=== PATIENT | male | born 2000 | race Caucasian/White ===

== ENCOUNTER 2018-06-15 14:19 | Emergency (ER) | payer OTHER ==
[~2018-06-15] VITALS: Ht 190.5 cm; Wt 68.0 kg
[2018-06-15 14:47] LABS: HEMATOCRIT 45.6 % (42.0-52.0); HEMOGLOBIN 16.1 gm/dL (14.0-18.0); MCH 29.7 pg (26.0-34.0); MCHC 35.4 g/dL (28.0-37.0); MCV 84.1 fL (80.0-100.0); PLATELET COUNT 93 thou/uL (150-400); RBC 5.42 mil/uL (4.50-6.00); RDW 12.3 % (10.5-14.5); WBC 6.4 thou/uL (4.0-11.0)
[2018-06-15 15:03] LABS: CALCIUM 9.2 mg/dL (8.5-10.1); POTASSIUM 3.6 mmol/L (3.5-5.1)
[2018-06-15 15:08] LABS: ALBUMIN 3.5 g/dL (3.4-5.0); TOTAL BILIRUBIN 4.6 mg/dL (<0.1-1.0); TOTAL PROTEIN 7.9 g/dL (6.4-8.2)
[2018-06-15 15:33] LABS: ABSOLUTE NEUTROPHILS 1.9 thou/uL (1.4-8.2)
[2018-06-15 17:31] LABS: URINE BLOOD NEGATIVE (Negative); URINE CLARITY CLEAR; URINE COLOR YELLOW; URINE GLUCOSE-RANDOM* NEGATIVE (Negative); URINE KETONES 1+ (Negative); URINE LEUKOCYTES-REFLEX NEGATIVE (Negative); URINE NITRITE-REFLEX NEGATIVE (Negative); URINE PROTEIN (DIPSTICK) NEGATIVE (Negative); URINE SPECIFIC GRAVITY <= 1.005 (1.005-1.035)
[2018-06-15 17:33] LABS: ICTOTEST (BILI CONFIRMATORY) Negative (Negative); URINE BILIRUBIN NEGATIVE (Negative)
[2018-06-15] MEDS ORDERED: PROTONIX40 MG PO (18:02)
[2018-06-15] MEDS ORDERED: PHENERGAN 25 MG25 M1 PO (18:02)
[2018-06-15] MEDS ORDERED: ZOFRAN ODT4 MG PO (18:02)
[2018-06-15 19:07] VITALS: BP 103/42
== END 2018-06-15 19:17 | disposition home or self-care (01) ==
LOC: ER 14:19
PROVIDERS: Emergency Medicine
DX: K75.9 Inflammatory liver disease, unspecified (principal); B27.90 Infectious mononucleosis, unspecified without complication; J02.9 Acute pharyngitis, unspecified; R51 Headache; J34.89 Other specified disorders of nose and nasal sinuses; K59.00 Constipation, unspecified; R50.9 Fever, unspecified; Z88.2 Allergy status to sulfonamides

== ENCOUNTER → 2020-05-12 | Outpatient (CLI) | payer OTHER ==
[~2020-05-12] MED LIST: PHENERGAN 25 MG25 M1 PO; PROTONIX40 MG PO; ZOFRAN ODT4 MG PO
[2020-05-12 13:35] LABS: HEMATOCRIT 45.8 % (42.0-52.0); HEMOGLOBIN 15.4 gm/dL (14.0-18.0); MCH 29.6 pg (26.0-34.0); MCHC 33.6 g/dL (28.0-37.0); MCV 88.1 fL (80.0-100.0); RBC 5.2 mil/uL (4.50-6.00); RDW 12.6 % (10.5-14.5); WBC 5.9 thou/uL (4.0-11.0)
[2020-05-12 13:53] LABS: ALBUMIN 4.1 g/dL (3.4-5.0); CALCIUM 9.2 mg/dL (8.5-10.1); CREATININE 0.7 mg/dL (0.7-1.3); POTASSIUM 4.5 mmol/L (3.5-5.1)
== END ==
LOC: LABMALL 12:47
PROVIDERS: ATTEND Internal Medicine Gastroenterology
DX: R13.12 Dysphagia, oropharyngeal phase (principal); R10.13 Epigastric pain